=== PATIENT | male | born 1975 | race Caucasian/White ===

== ENCOUNTER 2019-06-21 14:54 | Emergency (ER) | payer OTHER ==
[~2019-06-21] VITALS: Ht 175.3 cm; Wt 86.3 kg
[2019-06-21 14:54] VITALS: BP 136/88
--- NOTE | 2019-06-21 15:59 | REP ---
LEFT KNEE, FIVE VIEWS: FINDINGS: There is no evidence of an acute fracture, dislocation or intrinsic bone disease. IMPRESSION: No fracture or dislocation. Electronically Signed by David Lewis MD 06/25/2019 05:38 P
[2019-06-21] MEDS ORDERED: IBUP-1022 PO (16:51)
== END 2019-06-21 17:11 | disposition home or self-care (01) ==
LOC: M ED 14:54
DX: S83.92XA Sprain of unspecified site of left knee, initial encounter (principal); W19.XXXA Unspecified fall, initial encounter; Y92.099 Unspecified place in other non-institutional residence as the place of occurrence of the external cause; Y93.9 Activity, unspecified; Y99.9 Unspecified external cause status

== ENCOUNTER → 2024-08-05 | Outpatient (REF) ==
[~2024-08-05] MED LIST: IBUP-1022 PO
== END ==
LOC: M PLAIMG 09:47
PROVIDERS: ATTEND Internal Medicine
DX: R06.02 Shortness of breath (principal)